=== PATIENT | male | born 1985 | race African-American/Black ===

== ENCOUNTER 2023-04-25 12:30 | Outpatient (CLI) | payer OTHER, SELFPAY ==
[2023-04-25 18:15] LABS: Chlamydia DNA Amplified* NOT DETECTED (No Detected); GC DNA Amplified* NOT DETECTED (No Detected)
== END 2023-04-25 12:31 | disposition home or self-care (01) ==
LOC: LKVREF 12:30
PROVIDERS: Visit Provider Nurse Practitioner Family
DX: N50.89 Other specified disorders of the male genital organs (principal)
CPT/HCPCS: 87491; 87591

== ENCOUNTER 2025-03-29 10:28 | Emergency (ER) | payer OTHER, SELFPAY ==
--- OUTSIDE RECORDS SUMMARY | 2008-05-28 10:00 | XMS_ITS | Continuity of Care Document ---
Author Organization [facility] Address [address] [place] [address] Phone Care Team Providers Care Pad Assembler Name Role Phone José Avery MD Unavailable Unavailable Procedures Procedure Date Office/outpatient visit,[facility] 2008 X-ray exam of shoulder, complete 2008 Advance Directives Directive Yes / No Effective Date File Name Resuscitation Not Answered N/A N/A Life Support Not Answered N/A N/A Intubation Not Answered N/A N/A Antibiotics Not Answered N/A N/A IV Fluid Support Not Answered N/A N/A Tube Feed Not Answered N/A N/A Other Directive N/A N/A WARNING:The information contained in this section is historical and is provided for information only and does not constitute a legal document or any assurance that the information is still accurate. Please verify the information with the jimenez of the legal document before using it for clinical purposes. Encounters Encounter Description Practice Location Reason(s) For Visit Diagnoses Date Provider Providers Copied on Encounter Office/outpat ient visit,[facility], [address] [place] [address], [address], [place] tel:[phone] [place] [facility] right shoulder pain (chief complaint) No Information Gena Kumar. [address], [place], [id number] , [place]. tel:[phone] Family History Family Member Type Diagnosis Age At Onset No Information Payers Payer name Insurance type Covered green party ID Authoriza tion(s) No Information Social History Type Description Quantity Date Captured Comments Alcohol Use Details No Caffeine Use Details Unknown Tobacco Use Status No Information Smoking Status No Information Sex Male Chief Complaint And Reason For Visit From encounter dated '05/28/2008 16:00'. right shoulder pain (chief complaint). Description: Right shoulder pain since 07. 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 He plays short stop. Hurts to throw long distances. Does not hurt if he isn't playing. When he throws with anything on it He has a deep burning pain over his AC joint. He had a MRI over a year ago. he said another doctor wanted to do a MRI with contrast but he has n't been able to get that done yet. Reason For Referral Reason For Referral No Information History Of Present Illness Encounter Date Complaint History Of Prese nt Illness No Information Functional Status Date Functional Assessmen t No Information Instructions Date Instruction Additional Infor mation No Information Assessments Type Assessment Date No Information Patient Care Teams Name Effective Dates (start - stop) Status Members No Information
--- OUTSIDE RECORDS SUMMARY | 2008-05-28 10:00 | XMS_ITS | Continuity of Care Document ---
Author Organization [facility] Address [address] [place] [address] Phone Care Team Providers Care Plastic Parts Fabricator Trimmer Name Role Phone José Avery MD Unavailable Unavailable Procedures Procedure Date Office/outpatient visit,[facility] 2008 X-ray exam of shoulder, complete 2008 [...] Provider Providers Copied on Encounter Office/outpat ient visit,[facility], [address] [place] [address], [address], [place] tel:[phone] [facility] right shoulder pain (chief complaint) No Information Gena Kumar. [address], [place], [id number] , [place]. tel:[phone] Family History Family Member Type Diagnosis Age At Onset No Information Payers Payer name Insurance type Covered alliance party ID Authoriza tion(s) No Information Social History Type Description Quantity Date Captured Comments Alcohol Use Details No Caffeine Use Details Unknown Tobacco Use Status No Information Smoking Status No Information Sex Male Chief Complaint And Reason For Visit From encounter dated '05/28/2008 16:00'. right shoulder pain (chief complaint). Description: Right shoulder pain since 07. He played baseball at [employer] in [place]. He said he has a few pro [...]
--- OUTSIDE RECORDS SUMMARY | 2025-03-29 10:30 | XMS_ITS | Data Portability ---
Author Organization [facility] Ty ARREGUIN_Silvino_ Address [address] [place] [address] Care Team Providers Care Fitter Tacker Name Role Phone ANNMARIEMADINA ALEXANDER Primary Care Provider [phone] Assessment No assessment recorded. Plan of Treatment Reminders Order DateSubmit DateProviderLast Modified ByMarli DetailsLasaustin Modified TimeDetailsAppointmentsNone recorded.Laburinalysis, pqeyskmq89 yhdeyyzci25Lw-Wdqrfy Order, Internal Use Only DO Not Attach Compendium DO Not Attach Compendium, Do Not Delete/merge, 22:59:05culture, urine ATHENAIn-Office Order, Internal Use Only DO Not Attach Compendium DO Not Attach Compendium, Do Not Delete/merge, [id number]/13/2019 05:03:07CT + NG RNA, PCR, unspecified rsbwgxgn07ATHENAIn- Office Order, Internal Use Only DO Not Attach Compendium DO Not Attach Compendium, Do Not Delete/merge, [id number]/13/2019 05:03:05ReferralNone recorded. Procedurespulse oximetry (PROC)[id number]-Eozqcv Order, Internal Use Only DO Not Attach Compendium DO Not Attach Compendium, Do Not Delete/merge, [id number]/16/2018 19:34:08SurgeriesNone recorded.ImagingNone recorded.Medication Ordersmetronidazole 500 mg gqnbby98 INTERFACENot oaujmvxmh50/09/2019 19:34:14fluconazole 150 mg hiyeys4512/16/2018 12/16/2018INTERFACENot aepkygmwv69/09/2019 19:34:13 Patient TargetsNo targets recorded. Patient Instructions Encounter Date Encounter Id Patient Instructions Last Modified By Organization Details Last Modified Time 12/16/2018 [id number] RTC as needed. Not availabl e 12/18/2018 23:00:27 visit: 20 min visit with urine sent for culture as discussed with pt who stated his had a yeast infection as well and s/s began then.STD screening as discussed and ordered. Will review results and contact pt ir release to the portal if negative. Pt is in agreement with this plan of care as noted uxvyfamol29Bpl jaxwvddtb60/11/2019 23:02:20 Reason for Referral None Reported. Results Created Date Observation Date Name Description Value Unit Range Abnormal Flag Note LastModifiedBy Organization Detail LastModifiedTime 12/16/2018 12/16/2018 urinalysis, dipstick Glucose Negativ e Not AvailableIn-Office Order Internal Use Only DO Not Attach Compendium DO Not Attach Compendium, Do Not Delete/merge, 18:27:urinalysis, dipstick BilirubinNegativeNot AvailableIn-Office Order Internal Use Only DO Not Attach Compendium DO Not Attach Compendium, Do Not Delete/merge, 18:27:urinalysis, dipstick KetonesTraceNot AvailableIn-Office Order Internal Use Only DO Not Attach Compendium DO Not Attach Compendium, Do Not Delete/merge, 18:27:urinalysis, dipstickSG 1.020Not AvailableIn-Office Order Internal Use Only DO Not Attach Compendium DO Not Attach Compendium, Do Not Delete/merge, 18:27:urinalysis, dipstick BloodNegativeNot AvailableIn-Office Order Internal Use Only DO Not Attach Compendium DO Not Attach Compendium, Do Not Delete/merge, 18:27:urinalysis, dipstickpH 7.0Not AvailableIn-Office Order Internal Use Only DO Not Attach Compendium DO Not Attach Compendium, Do Not Delete/merge, 18:27:urinalysis, dipstick ProteinNegativeNot AvailableIn-Office Order Internal Use Only DO Not Attach Compendium DO Not Attach Compendium, Do Not Delete/merge, 18:27:urinalysis, dipstick Urobilinogen0.2Not AvailableIn-Office Order Internal Use Only DO Not Attach Compendium DO Not Attach Compendium, Do Not Delete/merge, 18:27:urinalysis, dipstick NitritesnegativeNot AvailableIn-Office Order Internal Use Only DO Not Attach Compendium DO Not Attach Compendium, Do Not Delete/merge, 18:27:urinalysis, dipstick LeukocytesNegativeNot AvailableIn-Office Order Internal Use Only DO Not Attach Compendium DO Not Attach Compendium, Do Not Delete/merge, 18:27:urinalysis, dipstick AppearanceSlightly CloudyNot AvailableIn-Office Order Internal Use Only DO Not Attach Compendium DO Not Attach Compendium, Do Not Delete/merge, 18:27:urinalysis, dipstick ColorDark YellowNot AvailableIn-Office Order Internal Use Only DO Not Attach Compendium DO Not Attach Compendium, Do Not Delete/merge, 18:27:pulse oximetry (PROC) pulse lspstglx00Gqu AvailableIn-Office Order Internal Use Only DO Not Attach Compendium DO Not Attach Compendium, Do Not Delete/merge, [id number] 18:27:15 Result Notes None recorded. Problems No Known Problems Medical Equipment None Reported. Allergies No known drug allergies Medications Name Sig Start Date Stop Date Status Note LastModified by Organization Details LastModified Time cetirizine 10 mg tablet 12/16/2018completedNot AvailableNot AvailableNot Availablefluconazole 150 mg tabletTake 1 tablet by oral route around the clock for 1 day.12/16/2018activeNot AvailableNot AvailableNot Availablemetronidazole 500 mg tabletTake 1 tablet every 12 hours by oral route for 7 days.12/16/2018activeNot AvailableNot AvailableNot Availablebenzonatate 100 mg kzdlbgb5112/16/2018completedNot Available Not AvailableNot AvailableProctofoam HC 1 %-1 %12/16/2018completedNot Available Not AvailableNot Availabledocusate sodium 100 mg asjlqzt1012/16/2018completedNot AvailableNot AvailableNot Availableamoxicillin 875 mg-potassium clavulanate 125 mg abfckq3912/16/2018completedNot AvailableNot AvailableNot Availableazithromycin 500 mg jqkkug8912/16/2018completedNot AvailableNot AvailableNot Available sildenafil (pulmonary hypertension) 20 mg jquykb2212/16/2018completedNot Available Not AvailableNot Available Vitals Date Recorded Body height Body mass index (BMI) Body weight Heart rate Body temperature Oxygen saturation Systolic And Diastolic Provider Name and Address Organization Details Last Updated DateTime 9 187.96 cm 28.2 kg/m2 94905.3 2 g 76 /min 97.8 [degF] 98 % 126/81 mm[Hg] Des Sanders [employer] [facility] 9 18:17:21 Social History Question Answer Notes LastModified by Organization D etails LastModified Time Tobacco Smoking Status Never Smoker Des Sanders [facility], [place] - [facility]12/16/2018 18:19:31What Was The Date Of Your Most Recent Tobacco Screening?12/16/2018DBA_PATCH_[id number] not gbhifywdl25/10/2019 Sex: Unknown Functional Status None recorded. Mental Status None recorded. Family History Relationship Description Onset Age of this Age Resolved Age Notes LastModified by Organization Details LastModified Time Father No current problems or disabilit y thuhuwk621Kvh glbuaaxcz31/09/2019 18:19:28MotherNo current problems or iryilbdmrrkjtchlx209Che bhfqoeihs79/09/2019 18:19:28 Medical History Condition Response Coronary Artery Disease N Gout N Kidney Stones N Hyperthyroidism N Erectile Dysfunction N Colonoscopy N Depression N COPD N Hypothyroidism N Developmental or Behavioral Disorders N Has Pacemaker N Diabetes - Non-insulin N Eczema, Hives or other skin conditions N Anxiety Disorder N Muscle, Joint, or Bone Problems N Vision or Eye Problems N Arthritis N Congenital Anomalies N Cancer N Stroke N Bladder or Kidney Problems N High Cholesterol N Liver Disease N Dialysis N Fibromyalgia N Kidney Disease N Ear or Hearing Problems N Leg/Foot Ulcer N Hypogonadism N ADD or ADHD N Thyroid Problems N Skin Problems N Anemia N Constipation N Blood Clots or DVT N Diabetes N Bleeding Disorder N Seizures/Epilepsy N Tuberculosis N Diabetes - Insulin N Diverticulitis N Heart Attack N Allergies N Asthma N GERD/Reflux N Heart Disease N Pulmonary Embolism N Hypertension N Osteoporosis N Past Encounters Encounter ID Performer Location Encounter Start Date Encounter Closed Date Diagnosis/Indication Diagnosis SNOMED-CT Code Diagnosis ICD10 Code Diagnosis IMO Codes Diagnosis Note [id number] [facility] [address] [facility] [address] [place] [address] 12/16/2018 17:17:51 12/30/2018 10:15:54 Pain in penis 871915044 N48.89 Xgzynct78798877C25.0 Candidiasis of yuhr95910394P76.2 Bacterial godfpnvpy611822872P46.0 Health Concerns Section Related Observation LastModified by Organization Detai ls LastModified Time None Recorded Concern Status LastModified by Organization Details LastModified Time None Recorded Advance Directives Directive None Recorded Payers Insurance Date Sequence Insurance Name Policy Number Policy Fan Covered Member ID Fan Member ID Guarantor Name 12/25/2018 1 [facility] () Jean Claude [id number] Vaughn [id number] [facility] ()Jean Claude [id number] Vaughn Renea Notes Date Note Type Note Provider Name and Address Orga nization Details Recorded Time 12/16/2018 text/html ROS as noted in the HPI penile painSonya Adam [facility], [place] - [facility]12/18/2018 23:03:00
[2025-03-29 10:59] VITALS: BP 127/87; PULSE 103; RESP 16; TEMP 36.3; O2SAT 97; BMI 27.4
--- NOTE | 2025-03-29 11:45 | CRLHL7_ITS ---
For Patients: As a result of the Century Cures Act, medical imaging exams and procedure reports are released immediately into your electronic medical record. You may view this report before your referring provider. If you have questions, please contact your health care provider. Indication: Back pain. Fall. Technique: Three views of the lumbar spine, AP, lateral. Comparison: None available. Findings/Impression: Limited evaluation on lateral view secondary to scoliosis. No acute displaced fracture or traumatic malalignment identified. Nonspecific nonobstructive bowel gas pattern in the visualized abdomen. Dictated by Pepper Souza MD @ 03/29/2025 12:50:12 PM (Electronically Signed)
--- NOTE | 2025-03-29 12:36 | ED.GENADULT ---
HPI - General Adult General Chief complaint: Fall/Minor Trauma Stated complaint: Fall yesterday, lower back/hip pain, swelling Time Seen by Provider: 03/29/25 11:38 History of Present Illness HPI narrative: Patient is a 39-year-old gentleman who had a twisting injury earlier this week where he actually hit his back on the right side near the posterior iliac crest. He has pain in that location with radiation to his buttocks. He has no bowel or bladder symptoms no fevers no chills. He is failing Tylenol and Motrin at home. No other related symptoms no fevers no chills no numbness no tingling no radiculopathy. Patient is otherwise feeling fine. X-ray series upon my review shows no acute abnormalities. Related Data Home Medications ?Medication ?Instructions ?Recorded ?Confirmed bupropion HCl 200 mg tablet,12 hr 200 mg PO QDAY 03/21/23 03/29/25 sustained-release duloxetine 60 mg capsule,delayed 60 mg PO DAILY 03/29/25 03/29/25 release sprinkle (Drizalma Sprinkle) topiramate .ROUTE 03/29/25 Previous Rx's ?Medication ?Instructions ?Recorded doxycycline hyclate 100 mg tablet 100 mg PO BID #14 tabs 04/25/23 hydrocodone 5 mg-acetaminophen 325 1 tab PO Q8H PRN pain #30 tabs 03/29/25 mg tablet prednisone 20 mg tablet 20 mg PO BID #10 tabs 03/29/25 Allergies Allergy/AdvReac Type Severity Reaction Status Date / Time No Known Drug Allergies Allergy Verified 03/29/25 11:05 Exam Narrative: Exam Narrative: EXAM GENERAL: Patient appears comfortable and well. EYES: No scleral icterus. LYMPH: No supraclavicular or cervical lymphadenopathy. SKIN: Visible skin seen during exam normal or with benign process only. EXT: No dependent lower extremity pedal edema. HEART: Regular rate and rhythm with no murmurs, rubs, or gallops. LUNGS: Clear to auscultation bilaterally with no crackles or wheezes. ABD: Soft, non tender, non distended. PSYCH: Good eye contact, speech is not pressured. No pain to palpation lumbar spine normal alignment. Const: Vital Signs, click to edit/add: Vital Signs - 24 hr 03/29/25 10:59 Temperature 97.4 F L Pulse Rate [Pulse Oximeter] 103 H Respiratory Rate 16 Blood Pressure [Ri ght Upper Arm] 127/87 Pulse Oximetry 97 Oxygen Delivery Me thod Room Air Course Course ED Course: Patient seen examined. X-ray was reviewed. He did receive Toradol IM. I did discharged home with a course of prednisone as well as Lovejoy for the next several days no driving or using machinery. He will follow-up with his primary physician this week if symptoms do not improve to discuss physical therapy and further evaluation. Vital Signs Vital signs: Initial Vital Signs Temperature 97.4 F L 03/29/25 10:59 Temperature Source Temporal Artery Scan 03/29/25 10:59 Pulse Rate 103 H 03/29/25 10:59 Pulse Rhythm Regular 03/29/25 10:59 Respiratory Rate 16 03/29/25 10:59 Blood Pressure 127/87 03/29/25 10:59 Blood Pressure Mean 100 03/29/25 10:59 Blood Pressure Position Standing 03/29/25 10:59 Pulse Oximetry 97 03/29/25 10:59 Oxygen Delivery Method Room Air 03/29/25 10:59 Vital Signs Temperature 97.4 F L 03/29/25 10:59 Pulse Rate 103 H 03/29/25 10:59 Respiratory Rate 16 03/29/25 10:59 Blood Pressure 127/87 03/29/25 10:59 Pulse Oximetry 97 03/29/25 10:59 Oxygen Delivery Method Room Air 03/29/25 10:59 Temperature 97.4 F L 03/29/25 10:59 Pulse Rate 103 H 03/29/25 10:59 Respiratory Rate 16 03/29/25 10:59 Blood Pressure 127/87 03/29/25 10:59 Pulse Oximetry 97 03/29/25 10:59 Oxygen Delivery Method Room Air 03/29/25 10:59 Medications Administered Medications: Discontinued Medications Generic Name Dose Route Start Last Admin Trade Name Freq PRN Reason Stop Dose Admin Ketorolac Tromethamine 30 mg 03/29/25 11:46 03/29/25 11:52 Ketorolac 30 Mg/Ml Inj IM 03/29/25 11:47 30 mg ONCE ONE Administration Discharge Plan Discharge Clinical Impression: Back pain Patient Disposition: Home, Self-Care Condition: Stable Instructions: Back Pain (ED) Additional Instructions: Ice Lovejoy as directed Prednisone as directed Advanced activity as tolerated. Follow-up with your doctor this week if symptoms not improved. Activity Level: No Restrictions Discharge Diet: Regular Prescriptions: New hydrocodone-acetaminophen 5-325 mg tablet 1 tab PO Q8H PRN (Reason: pain) Qty: 30 0RF prednisone 20 mg tablet 20 mg PO BID Qty: 10 0RF No Action bupropion HCl 200 mg tablet sustained-release 12 hr 200 mg PO QDAY doxycycline hyclate 100 mg tablet 100 mg PO BID Qty: 14 0RF Drizalma Sprinkle 60 mg capsule, delayed rel sprinkle 60 mg PO DAILY topiramate .ROUTE Follow Up/Referrals: Ale Srinivasan NP [Primary Care Provider, Family Practice] Stand Alone Forms: [employer] Info Instructions
== END 2025-03-29 13:00 | disposition home or self-care (01) ==
PROVIDERS: Emergency Provider Internal Medicine; PCP Nurse Practitioner Gerontology
DX: M54.50 Low back pain, unspecified (principal); X50.1XXA Overexertion from prolonged static or awkward postures, initial encounter
CPT/HCPCS: 72100; 96372; 99283; J1885